=== PATIENT | female | born 1995 | race African-American/Black ===

== ENCOUNTER → 2017-01-24 | Outpatient (CLI) | payer OTHER ==
--- NOTE | 2017-01-24 13:33 | DIAGNOSTIC IMAGING REPORT ---
NUCLEAR GASTRIC EMPTYING STUDY: CLINICAL HISTORY: R11.0 Nausea COMPARISON STUDY: None TECHNIQUE: Following the oral administration of 1.2 mCi of technetium 99m sulfur colloid in egg sandwich and 8 ounces of water, static abdominal images are performed anteriorly and posteriorly at 0 minutes, 1 hour, 2 hours, and 4 hour time intervals. Gastric emptying was calculated utilizing the geometric mean method. FINDINGS: There is approximately 84 % gastric activity remaining at the 1 hour time interval, 64 % at the 2 hour time interval (normal is less than 60%), and 29 % remaining at the 4 hour time interval (normal is less than 10%). These findings are consistent with abnormal study IMPRESSION: Findings are consistent with abnormal study with prolonged gastric emptying. Electronically signed by: Elia Luo M.D. 01/24/2017 1:31 PM Dictated Date/Time: 01/24/2017 1:31 PM
== END | disposition home or self-care (01) ==
LOC: C.NUCL 07:41
PROVIDERS: ATTEND Physician Assistant
DX: R11.0 Nausea (principal)